=== PATIENT | male | born 1960 | race Caucasian/White ===

== ENCOUNTER 2018-11-11 15:14 | Emergency (ER) | payer BC, MEDICARE, OTHER ==
[~2018-11-11] VITALS: Ht 193 cm; Wt 74.8 kg
[~2018-11-11 15:14] MED LIST: HYDR-1421; SOMA
[2018-11-11 15:59] VITALS: BP 132/81
[2018-11-11] MEDS ORDERED: cefTRIAXone 1GM/50ML D5W 50 ML IV ONE (16:30)
[2018-11-11] MEDS ORDERED: KETOROLAC TROMETH 30 MG/ML 1ML VIAL IV ONE (16:30)
[2018-11-11] MEDS ORDERED: CLINDAMYCIN 600MG IV 50 ML IV ONE (16:30)
== END 2018-11-11 17:21 | disposition home or self-care (01) ==
LOC: ER 15:14
DX: K04.7 Periapical abscess without sinus (principal); F17.210 Nicotine dependence, cigarettes, uncomplicated
CPT/HCPCS: 96365; 96368; 96375; 99283; J0696; J1885; J3490

== ENCOUNTER 2018-11-16 15:39 | Emergency (ER) | payer MEDICARE ==
[~2018-11-16] VITALS: Ht 193 cm; Wt 74.4 kg
[2018-11-16 15:55] VITALS: BP 130/85
== END 2018-11-16 17:00 | disposition left against medical advice (07) ==
LOC: ER 15:41
DX: K08.89 Other specified disorders of teeth and supporting structures (principal); Z53.21 Procedure and treatment not carried out due to patient leaving prior to being seen by health care provider